=== PATIENT | male | born 1995 | race Caucasian/White ===

== ENCOUNTER 2018-07-01 21:11 | Emergency (ER) | payer BC, OTHER ==
--- NOTE | 2018-07-01 21:34 | EDPHY ---
H & P Time Seen by Provider: 07/01/18 21:17 HPI/ROS: CHIEF COMPLAINT: Shortness of breath HISTORY OF PRESENT ILLNESS: Since last Sunday feels like he can't quite get a deep breath. Feels a little bit short of breath but no fever or chills or cough or hemoptysis or leg swelling. He has had a little bit of posterior upper back pain which he thinks is worse when he lifts at his job and does not pleuritic but it is associated for the last week. Symptoms mild to moderate. Not better or worse with anything. REVIEW OF SYSTEMS: Eye: no change in vision ENT: no sore throat Cardiac: HPI Pulmonary: HPI Abdomen: no vomiting, diarrhea, abdominal pain Musculoskeletal: no back pain Skin: no rash Neuro: no headache Constitutional: no fever : no urinary symptoms A comprehensive 10 point review of systems is otherwise negative aside from elements mentioned in the history of present illness. PAST MEDICAL HISTORY: IgA nephropathy Family history: Negative for VTE Social history: Here with his partner General Appearance: Alert and conversant, cooperative. Eyes: No scleral icterus. ENT, Mouth: Normal mucous membranes. Respiratory: Normal respiratory effort, breath sounds equal, lungs are clear to auscultation. No wheezing or rales. Cardiovascular: Regular rate and rhythm. Gastrointestinal: Abdomen is soft and non tender. Neurological: Alert, face symmetric, normal motor and sensory in extremities. Skin: Warm and dry, no rashes. Musculoskeletal: No peripheral edema. No calf tenderness. Psychiatric: Moderately anxious. Emergency Department course/MDM: Patient had a recent chest cold about 2 and half weeks ago. More likely related to that along with anxiety. Back pain appears to be muscular with worsening while lifting, I think that spinal cord problem or aortic dissection or aneurysm are less likely. Heart rate greater than 100. Will do EKG and chest x-ray, and D-dimer ordered because of increased risk of venous thromboembolism in patients with IgA nephropathy. 958: EKG nonacute, chest x-ray negative, D-dimer negative. Stable for discharge, reassured. Results discussed the patient. Smoking Status: Never smoked Constitutional: Initial Vital Signs Temperature (C) 37.6 C 07/01/18 21:12 Heart Rate 96 07/01/18 21:12 Respiratory Rate 16 07/01/18 21:12 Blood Pressure 153/95 H 07/01/18 21:12 O2 Sat (%) 98 07/01/18 21:12 O2 Delivery Mode Room Air Allergies/Adverse Reactions: No Known Allergies Allergy (Unverified 07/01/18 21:15) Home Medications: Medication Instructions Recorded NK [No Known Home Meds] 07/01/18 Medical Decision Making - Diagnostics EKG Interpretation: 12-lead EKG interpreted by me; official reading is in computer system. My interpretation is sinus rhythm rate 82 with LVH. Imaging Results: Imaging Impressions Chest X-Ray 07/01/18 21:29 Impression: Findings most consistent with bronchitis/airways disease are noted. Imaging: I viewed and interpreted images myself Differential Diagnosis: Differential diagnosis considered for shortness of breath including but not limited to pulmonary infectious process, COPD, asthma, pulmonary embolus and congestive heart failure. - Data Points Laboratory Results: Laboratory Results 07/01/18 21:37 07/01/18 21:37 07/01/18 07/01/18 07/01/18 21:37 21:37 21:37 WBC 9.73 10^3/uL H 10^3/uL (3.80-9.50) RBC 5.60 10^6/uL 10^6/uL (4.40-6.38) Hgb 15.5 g/dL g/dL (13.7-17.5) Hct 47.0 % % (40.0-51.0) MCV 83.9 fL fL (81.5-99.8) MCH 27.7 pg L pg (27.9-34.1) MCHC 33.0 g/dL g/dL (32.4-36.7) RDW 12.5 % % (11.5-15.2) Plt Count 311 10^3/uL 10^3/uL (150-400) MPV 9.7 fL fL (8.7-11.7) Neut % (Auto) 53.3 % % (39.3-74.2) Lymph % (Auto) 34.6 % % (15.0-45.0) [place] % (Auto) 8.6 % % (4.5-13.0) Eos % (Auto) 2.9 % % (0.6-7.6) Baso % (Auto) 0.4 % % (0.3-1.7) Nucleat RBC Rel Count 0.0 % % (0.0-0.2) Absolute Neuts (auto) 5.18 10^3/uL 10^3/uL (1.70-6.50) Absolute Lymphs (auto) 3.37 10^3/uL H 10^3/uL (1.00-3.00) Absolute Monos (auto) 0.84 10^3/uL H 10^3/uL (0.30-0.80) Absolute Eos (auto) 0.28 10^3/uL 10^3/uL (0.03-0.40) Absolute Basos (auto) 0.04 10^3/uL 10^3/uL (0.02-0.10) Absolute Nucleated RBC 0.00 10^3/uL 10^3/uL (0-0.01) Immature Gran % 0.2 % % (0.0-1.1) Immature Gran # 0.02 10^3/uL 10^3/uL (0.00-0.10) D-Dimer 0.33 ug/mLFEU ug/mLFEU (0.00-0.50) Sodium 136 mEq/L mEq/L (135-145) Potassium 3.5 mEq/L mEq/L (3.5-5.2) Chloride 100 mEq/L mEq/L (97-110) Carbon Dioxide 22 mEq/l mEq/l (22-31) Anion Gap 14 mEq/L mEq/L (6-14) BUN 13 mg/dL mg/dL (7-23) Creatinine 0.8 mg/dL mg/dL (0.7-1.3) Estimated GFR > 60 Glucose 98 mg/dL mg/dL (70-100) Calcium 10.3 mg/dL mg/dL (8.5-10.4) Departure - Departure Disposition: Home, Routine, Self-Care Clinical Impression: Dyspnea, Upper back pain Condition: Good Instructions: Dyspnea (ED), Back Pain (ED) Additional Instructions: D-dimer negative, pulmonary embolism unlikely. EKG does not show any evidence of heart attack. Normal oxygen saturation. Referrals: Stef Pedraza MD [Medical Doctor] - As per Instructions
[2018-07-01 21:44] LABS: PLATELET COUNT 311 10^3/uL (150-400)
[2018-07-01 22:07] VITALS: BP 136/74
--- NOTE | 2018-07-04 14:42 | CPEKG ---
Test Reason : OPEN Blood Pressure : / mmHG Vent. Rate : 082 BPM Atrial Rate : 078 BPM P-R Int : 134 ms QRS Dur : 109 ms QT Int : 384 ms P-R-T Axes : 055 051 015 degrees QTc Int : 449 ms Sinus rhythm Probable left ventricular hypertrophy Confirmed by Slava Berger ([id number]) on 07/04/2018 2:42:04 PM Referred By: Slava Berger Confirmed By:Slava Berger
== END 2018-07-01 22:07 | disposition home or self-care (01) ==
DX: R06.00 Dyspnea, unspecified (principal); M54.9 Dorsalgia, unspecified